=== PATIENT | male | born 1960 | race Asian ===

== ENCOUNTER 2019-02-04 06:57 | Day surgery (SDC) | payer OTHER ==
[2019-02-04] MEDS ORDERED: PROPOFOL 40 ML (08:41)
== END 2019-02-04 11:15 | disposition home or self-care (01) ==
LOC: GIL 06:57
DX: Z12.11 Encounter for screening for malignant neoplasm of colon (principal); D12.5 Benign neoplasm of sigmoid colon; K57.30 Diverticulosis of large intestine without perforation or abscess without bleeding; K64.4 Residual hemorrhoidal skin tags; K64.8 Other hemorrhoids; I10 Essential (primary) hypertension; E11.9 Type 2 diabetes mellitus without complications
CPT/HCPCS: 45385; 82962; 88305